=== PATIENT | male | born 1970 | race Caucasian/White ===

== ENCOUNTER 2020-01-18 07:07 | Outpatient (CLI) | payer BC, SELFPAY ==
[2020-01-18 07:50] LABS: Hematocrit 45.9 % (42.0-52.0); Hemoglobin 15.6 g/dL (14.0-18.0); Mean Corpuscular Hemoglobin 30.6 pg (26-34); Mean Platelet Volume 10.1 fl (7.4-10.4); Platelet Count Result 247 k/mm3 (150-375); Red Cell Distribution Width 13.4 % (11.5-14.5); White Blood Count 5.5 K/mm3 (4.5-10.0)
[2020-01-18 08:05] LABS: Alanine Aminotransferase 33 U/L (4-50); Albumin Level 4.5 g/dL (3.5-5.1); Alkaline Phosphatase 48 U/L (38-126); Anion Gap 7 mmol/L (8-16); Aspartate Amino Transferase 28 U/L (17-59); Bilirubin,Total 1.1 mg/dL (0.2-1.3); Blood Urea Nitrogen 21 mg/dL (9-20); Calcium 9.4 mg/dL (8.4-10.2); Carbon Dioxide 30 mmol/L (22-30); Chloride 102 mmol/L (98-107); Cholesterol 216 mg/dL (0-200); Estimated Glomerular Filt Rate > 60; Glucose 101 mg/dL (75-110); HDL Direct 67 mg/dL; Potassium 4.3 mmol/L (3.4-5.0); Sodium 139 mmol/L (137-145); Triglycerides 119 mg/dL (<150)
[2020-01-18 08:16] LABS: LDL Cholesterol Direct 108 mg/dL
[2020-01-18 08:34] LABS: Prostate Specific Antigen 0.4 ng/mL (< OR = 4.0)
== END 2020-01-18 07:08 | disposition home or self-care (01) ==
PROVIDERS: PCP Family Medicine; Visit Provider Physician Assistant Medical
DX: I10 Essential (primary) hypertension (principal); Z12.5 Encounter for screening for malignant neoplasm of prostate; Z13.220 Encounter for screening for lipoid disorders
CPT/HCPCS: 36415; 80053; 80061; 84153; 84443; 85027

== ENCOUNTER 2020-06-29 10:33 | Outpatient (CLI) | payer BC, SELFPAY ==
[2020-06-29 11:12] LABS: Basophils Percent Auto 0.6 % (0.2-1.2); Eosinophils Absolute Auto 0.1 K/mm3 (0-0.3); Eosinophils Percent Auto 2.5 % (0-4.4); Hematocrit 46.4 % (42.0-52.0); Hemoglobin 15.6 g/dL (14.0-18.0); Immature Granulocyte Absolute 0.01 K/mm3 (0.00-0.031); Immature Granulocyte Percent A 0.2 % (0-0.5); Lymphocytes Absolute Auto 1.58 K/mm3 (0.9-3.2); Lymphocytes Percent Auto 32.8 % (18.3-44.2); Mean Corpuscular HGB Conc 33.6 g/dl (32-36); Mean Corpuscular Hemoglobin 30.1 pg (26-34); Mean Corpuscular Volume 89.4 fl (80-100); Mean Platelet Volume 10.3 fl (7.4-10.4); Monocytes Absolute Auto 0.6 K/mm3 (0.1-0.6); Neutrophils Absolute Auto 2.5 K/mm3 (1.3-6.7); Neutrophils Percent Auto 51.9 % (45.5-73.1); Platelet Count Result 225 k/mm3 (150-375); Red Blood Count 5.19 M/mm3 (4.6-6.20); White Blood Count 4.8 K/mm3 (4.5-10.0)
--- NOTE | 2020-06-29 11:18 | ECG_ITS ---
Measurements Intervals [place] Rate: 51 P: 68 NE: 173 QRS: 63 QRSD: 110 T: 26 QT: 414 QTc: 384 Interpretive Statements SINUS BRADYCARDIA PEAKED T WAVES- CONSIDER HYPERKALEMIA OR ISCHEMIA ABNORMAL ECG Electronically Signed On 06-29-2020 11:35:14 EVS ATTENDANT by Denver Saini D.O.
[2020-06-29 11:23] LABS: Anion Gap 5 mmol/L (8-16); Blood Urea Nitrogen 20 mg/dL (9-20); Calcium 9.7 mg/dL (8.4-10.2); Carbon Dioxide 32 mmol/L (22-30); Chloride 102 mmol/L (98-107); Estimated Glomerular Filt Rate > 60; Glucose 97 mg/dL (75-110); Potassium 4.5 mmol/L (3.4-5.0); Sodium 139 mmol/L (137-145)
[2020-06-29 13:51] LABS: SARS-CoV-2 IgG Non-Reactive (NonReactive)
== END 2020-06-29 10:34 | disposition home or self-care (01) ==
PROVIDERS: PCP Family Medicine; Visit Provider Nurse Practitioner Family
DX: R00.2 Palpitations (principal); R07.89 Other chest pain; R25.2 Cramp and spasm
CPT/HCPCS: 36415; 80048; 82607; 83735; 84443; 85025; 86769; 93005

== ENCOUNTER 2020-07-03 13:00 | Outpatient (CLI) | payer BC, SELFPAY ==
--- NOTE | 2020-07-06 12:25 | WPDHOLTEREM ---
Holter/Event Monitor Holter/Event Monitor Date of procedure: 07/03/20 Procedure Type: 48 hour holter monitor Indications: Palpitations Conclusion: 1. 48 hour holter monitor on 07/03/20. 2. Predominant rhythm is sinus rhythm. HR range 39-150 bpm; average HR 67 bpm. 3. There are 51 premature supraventricular complexes and 3 supraventricular couplets. There are 2 short runs of atrial tachycardia, fastest at 124 bpm and longest lasting 8 beats. 4. There are 16 premature ventricular complexes and 1 ventricular couplet. No ventricular tachycardia. 5. No sinoatrial or atrioventricular blocks. No significant pauses greater than 2 seconds. 6. No symptoms available for correlation.
== END 2020-07-03 13:01 | disposition home or self-care (01) ==
PROVIDERS: PCP Family Medicine; Visit Provider Nurse Practitioner Family
DX: R00.2 Palpitations (principal)
CPT/HCPCS: 93225; 93226

== ENCOUNTER 2020-07-31 07:29 | Outpatient (CLI) | payer BC, SELFPAY ==
--- NOTE | 2020-07-31 07:45 | ECHO_ITS ---
Patient Info Name: Hayden Longo Age: 50 years : 1970 Gender: Male Ht: 67 in Wt: 190 lbs BSA: 2.04 m2 HR: 57 bpm BP: 141 / 83 mmHg Exam Date: 07/31/2020 7:54 AM Exam Location: [facility] Pulmonary Patient Status: Outpatient Admit Date: 07/31/2020 Staff Ordering Physician: Maida Nunez NP Lead Cytogenetic Technologist: Sade Colon RDCS Attending Provider: Maida Nunez NP Referring Physician: Mayra SILVA; Exam Type: CA echo doppler color flow Study Info Indications R94.31 - Abnormal electrocardiogram ECG EKG Complete two-dimensional, color flow and Doppler transthoracic echocardiogram is performed. Summary 1. Complete two-dimensional, color flow and Doppler transthoracic echocardiogram is performed. 2. Left ventricular chamber dimension is normal. 3. Left ventricular systolic function is normal, estimated at 60-65%. 4. The left ventricular diastolic function is normal. 5. E/e' 7 is not elevated. 6. There is mild mitral valve regurgitation. 7. There is trace tricuspid valve regurgitation. 8. Mild pulmonary hypertension, estimated pulmonary arterial systolic pressure is 41 mmHg. Left Ventricle E/e' 7 is not elevated. Left ventricular chamber dimension is normal. Left ventricular systolic function is normal, estimated at 60-65%. The left ventricular diastolic function is normal. Right Ventricle Right ventricular chamber dimension is normal. Right ventricular systolic function is normal. Left Atria Left atrial chamber dimension is normal. Right Atria Right atrial chamber dimension is normal. Aortic Valve The aortic valve is trileaflet. There is no aortic valve stenosis. There is no aortic valve regurgitation. Pulmonic Valve There is no pulmonic regurgitation. Mitral Valve There is no mitral valve stenosis. There is mild mitral valve regurgitation. Tricuspid Valve There is trace tricuspid valve regurgitation. Mild pulmonary hypertension, estimated pulmonary arterial systolic pressure is 41 mmHg. Pericardium/Pleural There is no pericardial effusion. Inferior Vena Cava Normal inferior vena cava with >50% collapse upon inspiration consistent with normal right atrial pressure, 5 mmHg. Aorta The aortic root size at the sinus of Valsalva is normal. Left Ventricular Outflow Tract Name Value Normal LVOT 2D LVOT Diameter 2.1 cm LVOT Doppler LVOT Peak Gradient 3 mmHg LVOT Mean Gradient 1 mmHg LVOT VTI 24 cm LVOT VTI/AV VTI Ratio 0.8 LVOT Stroke Volume 84 ml LVOT CO 9.4 l/min LVOT CI 4.6 l/min/m2 Pulmonic Valve Name Value Normal RVOT Doppler RVOT Peak Gradient 1 mmHg
--- NOTE | 2020-07-31 07:45 | EST_ITS ---
Patient Info Name: Hayden Longo Age: 50 years : 1970 Gender: Male Ht: 67 in Wt: 190 lbs BSA: 2.04 m2 Exam Date: 07/31/2020 9:37 AM Exam Location: [facility] Stress Patient Status: Outpatient Admit Date: 07/31/2020 Staff Ordering Physician: Maida Nunez NP Attending Provider: Maida Nunez NP Exercise Technologist: Gertrude Reynoso RDCS Exercise Physician: Denver Saini DO Exam Type: CA stress test treadmill Study Info Indications R94.31 - Abnormal electrocardiogram ECG EKG A regadenoson stress test was performed. Summary 1. 1. Negative [place]anco exercise stress test for ischemic ST changes by ECG criteria. 2. 2. Good functional capacity, achieving 12 METs of workload. 3. 3. Baseline hypertension. 4. 4. Appropriate HR response to exercise. 5. 5. Appropriate HR recovery at 1 minute post exercise. 6. 6. No imaging with stress testing. 7. 7. Patient informed of the above results. Protocol: [place] Stress ECG Details Stage: REST Duration (min): 0 min : 41 sec Speed (mph): 0.0 Grade (%): 0 HR (bpm): 55 SBP (mmHg): 146 DBP (mmHg): 90 METS: --- Stage: REST Duration (min): 4 min : 57 sec Speed (mph): 0.0 Grade (%): 0 HR (bpm): 61 SBP (mmHg): 146 DBP (mmHg): 90 METS: --- Stage: STAGE 1 Duration (min): 1 min : 0 sec Speed (mph): 1.7 Grade (%): 10 HR (bpm): 85 SBP (mmHg): 146 DBP (mmHg): 90 METS: --- Stage: STAGE 1 Duration (min): 2 min : 0 sec Speed (mph): 1.7 Grade (%): 10 HR (bpm): 90 SBP (mmHg): 146 DBP (mmHg): 90 METS: --- Stage: STAGE 1 Duration (min): 3 min : 0 sec Speed (mph): 1.7 Grade (%): 10 HR (bpm): 97 SBP (mmHg): 168 DBP (mmHg): 70 METS: --- Stage: STAGE 2 Duration (min): 1 min : 0 sec Speed (mph): 2.5 Grade (%): 12 HR (bpm): 110 SBP (mmHg): 168 DBP (mmHg): 70 METS: --- Stage: STAGE 2 Duration (min): 2 min : 0 sec Speed (mph): 2.5 Grade (%): 12 HR (bpm): 117 SBP (mmHg): 198 DBP (mmHg): 81 METS: --- Stage: STAGE 2 Duration (min): 3 min : 0 sec Speed (mph): 2.5 Grade (%): 12 HR (bpm): 117 SBP (mmHg): 198 DBP (mmHg): 81 METS: --- Stage: STAGE 3 Duration (min): 1 min : 0 sec Speed (mph): 3.4 Grade (%): 14 HR (bpm): 133 SBP (mmHg): 197 DBP (mmHg): 78 METS: --- Stage: STAGE 3 Duration (min): 2 min : 0 sec Speed (mph): 3.4 Grade (%): 14 HR (bpm): 138 SBP (mmHg): 197 DBP (mmHg): 78 METS: --- Stage: STAGE 3 Duration (min): 3 min : 0 sec Speed (mph): 3.4 Grade (%): 14 HR (bpm): 140 SBP (mmHg): 202 DBP (mmHg): 78 METS: --- Stage: STAGE 4 Duration (min): 1 min : 0 sec Speed (mph): 4.2 Grade (%): 16 HR (bpm): 157 SBP (mmHg): 202 DBP (mmHg): 78 METS: --- Stage: STAGE 4 [facility]
== END 2020-07-31 07:30 | disposition home or self-care (01) ==
LOC: ANHCARD 07:32
PROVIDERS: PCP Family Medicine; Visit Provider Nurse Practitioner Family
DX: R94.31 Abnormal electrocardiogram [ECG] [EKG] (principal); I10 Essential (primary) hypertension
CPT/HCPCS: 93017; 93306

== ENCOUNTER → 2021-01-11 08:38 | Outpatient (CLI) | payer BC, SELFPAY ==
--- NOTE | ~2021-01-11 | CT_ITS ---
EXAMINATION: CT abdomen pelvis w con DATE: 01/11/2021 09:00 INDICATION: Right lower quadrant abdominal pain. TECHNIQUE: Computed tomography (CT) of the abdomen and pelvis was performed with 100 mL Omnipaque-350 intravenous contrast. Automated exposure control and iterative reconstruction technique were employe d. The dose-length product was 622.40 mGy-cm. COMPARISON: 10/02/2007 FINDINGS: Lung bases are clear. Heart size is normal. No pericardial or pleural effusion. Liver, gallbladder, s pleen, pancreas, bilateral adrenal glands and left kidney are normal. 5 mm low-attenuation likely cys t at the lower pole of the right kidney which is too small to definitively characterize. Unchanged no rmal appendix. A few diverticula along the sigmoid colon without adjacent inflammatory change to sugg est diverticulitis. No bowel obstruction. Incompletely distended bladder is unremarkable. No free int raperitoneal gas or fluid. No pathologically enlarged abdominal or pelvic lymphadenopathy. No inguina l hernias. Unchanged L5 spondylolysis with bilateral pars intra-articular is defects and 3 mm anterol isthesis on S1. Mild bilateral hip osteoarthritis. IMPRESSION: 1. No acute intra-abdominal/pelvic process. 2. Chronic L5 spondylolysis. Reviewed, dictated and finalized at location B.
[2021-01-11 08:52] LABS: Estimated Glomerular Filt Rate > 60
== END ==
PROVIDERS: PCP Family Medicine; Visit Provider Nurse Practitioner Family
DX: R10.31 Right lower quadrant pain (principal); M47.896 Other spondylosis, lumbar region
CPT/HCPCS: 74177; Q9967

== ENCOUNTER 2022-04-26 06:49 | Outpatient (CLI) | payer BC, SELFPAY ==
[2022-04-26 07:40] LABS: Anion Gap 3 mmol/L (8-16); Basophils Percent Auto 0.6 % (0.2-1.2); Blood Urea Nitrogen 17 mg/dL (9-20); Calcium 9.6 mg/dL (8.4-10.2); Carbon Dioxide 35 mmol/L (22-30); Chloride 103 mmol/L (98-107); Cholesterol 205 mg/dL (0-200); Eosinophils Absolute Auto 0.2 K/mm3 (0-0.3); Eosinophils Percent Auto 3.2 % (0-4.4); Estimated Glomerular Filt Rate > 60; Glucose 97 mg/dL (65-110); HDL Direct 84 mg/dL; Hematocrit 48.5 % (42.0-52.0); Hemoglobin 16.3 g/dL (14.0-18.0); Immature Granulocyte Absolute 0.01 K/mm3 (0.00-0.031); Immature Granulocyte Percent A 0.2 % (0-0.5); Lymphocytes Absolute Auto 1.91 K/mm3 (0.9-3.2); Lymphocytes Percent Auto 40.8 % (18.3-44.2); Mean Corpuscular HGB Conc 33.6 g/dl (32-36); Mean Corpuscular Hemoglobin 30.9 pg (26-34); Mean Platelet Volume 10.2 fl (7.4-10.4); Monocytes Absolute Auto 0.5 K/mm3 (0.1-0.6); Monocytes Percent Auto 11.1 % (2.6-8.5); Neutrophils Absolute Auto 2.1 K/mm3 (1.3-6.7); Neutrophils Percent Auto 44.1 % (45.5-73.1); Platelet Count Result 264 k/mm3 (150-375); Potassium 4.6 mmol/L (3.4-5.0); Red Blood Count 5.27 M/mm3 (4.6-6.20); Red Cell Distribution Width 13.4 % (11.5-14.5); Sodium 141 mmol/L (137-145); Triglycerides 65 mg/dL (<150); White Blood Count 4.7 K/mm3 (4.5-10.0)
[2022-04-26 07:51] LABS: LDL Cholesterol Direct 81 mg/dL
[2022-04-26 08:11] LABS: Prostate Specific Antigen 0.5 ng/mL (< OR = 4.0)
== END 2022-04-26 06:50 | disposition home or self-care (01) ==
LOC: ANHLAB 06:51
PROVIDERS: PCP Family Medicine; Visit Provider Family Medicine
DX: I10 Essential (primary) hypertension (principal); Z13.220 Encounter for screening for lipoid disorders; N40.2 Nodular prostate without lower urinary tract symptoms; Z12.5 Encounter for screening for malignant neoplasm of prostate
CPT/HCPCS: 36415; 80048; 80061; 84153; 84443; 85025; G0103

== ENCOUNTER 2022-05-27 01:46 | Day surgery (SDC) | payer BC, SELFPAY ==
[2022-05-14 13:42] VITALS: BMI 27.2
--- NOTE | 2022-05-25 20:04 | P.HP_ITS ---
History of Present Illness History of Present Illness Consent: Risks, benefits, and alternatives have been discussed and questions answered. Patient agrees to proceed with procedure. Chief complaint: colon cancer screen Narrative: Hayden Longo is a 51 year old male referred for colon cancer screening. Review of Systems Review of Systems: All systems reviewed & are unremarkable except as noted in HPI and below PMFSH Past Medical History Medical History BMI 26.0-26.9,adult BMI 29.0-29.9,adult Prostate nodule Screen for colon cancer Family History Family History Father Hypertension Family history of transient ischemic attacks Mother Heart disease Sibling No problems noted. Social History Social History Smoking status: Never smoker Second hand tobacco smoke exposure: No Alcohol intake: current Drinks per week: 2 Alcohol use details: DRINKS Substance use: never Substance use type: does not use Living arrangements: with family Additional occupation/education comments: [employer] Gender identity (if verbalized by the patient): Male Spiritual care concerns: No Meds Home Medications and Allergies Home Medications Medication Instructions Recorded Confirmed Type benazepril 10 mg tablet 10 mg PO DAILY #30 tabs 04/22/22 05/14/22 Rx Allergies Allergy/AdvReac Type Severity Reaction Status Date / Time No Known Allergies Allergy Verified 05/14/22 13:42 Exam Const: General: alert Orientation/consciousness: patient oriented x3 Resp: Auscultation: clear to auscultation bilaterally Cardio: Rhythm: regular rhythm GI: GI Palp: Yes Soft to palpation and No Tenderness to palpation present (GI) Neuro: General: patient oriented x3 Assessment and Plan Assessment and plan (1) Screen for colon cancer: Code(s): Z12.11 - Encounter for screening for malignant neoplasm of colon Status: Acute Assessment and Plan: Colonoscopy with possible biopsy or polypectomy or cautery or injection of substances.
[2022-05-27 08:42] VITALS: BP 136/75; PULSE 48; RESP 18; TEMP 36.1; O2SAT 100; BMI 26.8
[2022-05-27] MEDS: LACTATED RINGERS 1,000 ML 150 ML IV CONT (08:53)
--- NOTE | 2022-05-27 09:34 | WPDANESEPPF ---
Anes - Initial Pre Proc Eval Procedure: Operation Date: 05/27/22 10:00 Proposed Procedures p Colonoscopy - Levi Cuevas MD Date/Time: 05/27/22 09:34 Surgeon: Levi Cuevas MD Pre Op Diagnosis: colon cancer screen Patient Data Age: 51 Gender: M Height: 1.7 m Weight: 77.6 kg Last Vital Signs Temp 97 F L 05/27/22 08:42 Pulse 48 L 05/27/22 08:42 Resp 18 05/27/22 08:42 BP 136/75 05/27/22 08:42 Pulse Ox 100 05/27/22 08:42 O2 Del Method Room Air 05/27/22 08:42 Allergies Allergy/AdvReac Type Severity Reaction Status Date / Time No Known Allergies Allergy Verified 05/14/22 13:42 Home Medications Medication Instructions Recorded Confirmed Type benazepril 10 mg tablet 10 mg PO DAILY #30 tabs 04/22/22 05/14/22 Rx Patient hx anesthesia problems: none Family hx anesthesia problems: none Results Review: All pre-operative results and documents have been reviewed as part of the pre-operative evaluation. [facility] Past Medical History Medical History BMI 26.0-26.9,adult BMI 29.0-29.9,adult Prostate nodule Screen for colon cancer Family History Family History Father Hypertension Family history of transient ischemic attacks Mother Heart disease Sibling No problems noted. Social History Social History Smoking status: Never smoker Second hand tobacco smoke exposure: No Alcohol intake: current Drinks per week: 2 Alcohol use details: DRINKS Substance use: never Substance use type: does not use Living arrangements: with family Additional occupation/education comments: [employer] Gender identity (if verbalized by the patient): Male Spiritual care concerns: No Anes - Eval Final PreProcedure Day of Procedure 05/27/22 09:34 Patient weight: normal Heart: regular rate and rhythm Lungs: clear to auscultation Airway: Mallampati scale class II Neurological: alert and oriented Last oral intake: >/= 8 hours ASA classification: II Emergent: no Anesthetic plan: proceed Anesthesia type and monitoring: general GIVS and standard monitoring Results Review: All pre-operative results and documents have been reviewed as part of the pre-operative evaluation. Informed Consent: The patient's anesthetic plan and its attendant risks and benefits were discussed with the patient/family/POA. Questions were solicited and answers provided to the satisfaction of the patient/family/POA.
[2022-05-27 10:10] VITALS: BP 95/69; PULSE 51; RESP 18; O2SAT 100
[2022-05-27 10:20] VITALS: BP 112/71; PULSE 48; RESP 14; O2SAT 100
[2022-05-27 10:30] VITALS: BP 120/75; PULSE 49; RESP 14; O2SAT 100
== END 2022-05-27 10:45 | disposition home or self-care (01) ==
PROVIDERS: PCP Family Medicine; Visit Provider Internal Medicine Gastroenterology
PROC: 0DJD8ZZ Inspection of Lower Intestinal Tract, Via Natural or Artificial Opening Endoscopic (ICD-10-PCS; CPT 45378; principal; 2022-05-27 10:00)
DX: Z12.11 Encounter for screening for malignant neoplasm of colon (principal)
CPT/HCPCS: 45378; J2704; J7120

== ENCOUNTER 2023-02-25 10:39 | Emergency (ER) | payer BC, SELFPAY ==
--- NOTE | ~2023-02-25 | XR_ITS ---
XR clavicle RT, XR shoulder RT min 2V 02/25/2023 11:07 Indication: Right shoulder pain after fall Procedure: 2 views right clavicle and 4 views right shoulder Comparison: 02/25/2023 Findings: There is mild osteoarthritis of the right acromioclavicular and glenohumeral joints. No sig nificant soft tissue abnormality. No foreign bodies. Impression: 1: No acute fracture. Reviewed, dictated and finalized at location L. Impression: 1: No acute fracture. Impression: 1: No acute fracture.
[2023-02-25 10:50] VITALS: BP 155/89; PULSE 58; RESP 15; TEMP 36.7; O2SAT 99
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
== END 2023-02-25 12:04 | disposition home or self-care (01) ==
PROVIDERS: Emergency Provider Physician Assistant; PCP Family Medicine
DX: S49.91XA Unspecified injury of right shoulder and upper arm, initial encounter (principal); V18.0XXA Pedal cycle driver injured in noncollision transport accident in nontraffic accident, initial encounter; Y93.55 Activity, bike riding
CPT/HCPCS: 73000; 73030; 99283; A4565

== ENCOUNTER 2023-06-20 07:05 | Outpatient (CLI) | payer BC, SELFPAY ==
[2023-06-20 07:21] LABS: Hematocrit 44.9 % (42.0-52.0); Hemoglobin 15.4 g/dL (14.0-18.0); Mean Corpuscular HGB Conc 34.3 g/dl (32-36); Mean Corpuscular Hemoglobin 31.5 pg (26-34); Mean Corpuscular Volume 91.8 fl (80-100); Mean Platelet Volume 10.2 fl (7.4-10.4); Platelet Count Result 246 k/mm3 (150-375); Red Blood Count 4.89 M/mm3 (4.6-6.20); Red Cell Distribution Width 13.1 % (11.5-14.5); White Blood Count 3.8 K/mm3 (4.5-10.0)
[2023-06-20 08:00] LABS: Free T4 Free Thyroxine 1.12 ng/mL (0.78-2.19)
[2023-06-20 08:43] LABS: Anion Gap 6 mmol/L (8-16); Blood Urea Nitrogen 19 mg/dL (9-20); Calcium 9.5 mg/dL (8.4-10.2); Carbon Dioxide 30 mmol/L (22-30); Chloride 104 mmol/L (98-107); Cholesterol 179 mg/dL (0-200); Estimated Glomerular Filt Rate > 60; Glucose 87 mg/dL (65-110); HDL Direct 57 mg/dL; Sodium 140 mmol/L (137-145); Triglycerides 51 mg/dL (<150)
[2023-06-20 08:47] LABS: Potassium 4.6 mmol/L (3.4-5.0)
[2023-06-20 08:49] LABS: LDL Cholesterol Direct 91 mg/dL
[2023-06-20 09:27] LABS: Prostate Specific Antigen 0.5 ng/mL (< OR = 4.0)
== END 2023-06-20 07:06 | disposition home or self-care (01) ==
LOC: ANHLAB 07:06
PROVIDERS: PCP Family Medicine; Visit Provider Nurse Practitioner Adult Health
DX: E78.5 Hyperlipidemia, unspecified (principal); I10 Essential (primary) hypertension; Z12.5 Encounter for screening for malignant neoplasm of prostate; Z13.29 Encounter for screening for other suspected endocrine disorder
CPT/HCPCS: 36415; 80048; 80061; 84153; 84439; 84443; 85027; G0103

== ENCOUNTER 2023-07-17 14:01 | Outpatient (CLI) | payer BC, SELFPAY ==
[2023-07-17 14:17] LABS: Basophils Percent Auto 0.4 % (0.2-1.2); Eosinophils Absolute Auto 0.1 K/mm3 (0-0.3); Eosinophils Percent Auto 2.8 % (0-4.4); Hematocrit 45.5 % (42.0-52.0); Hemoglobin 15.3 g/dL (14.0-18.0); Immature Granulocyte Absolute 0.01 K/mm3 (0.00-0.031); Immature Granulocyte Percent A 0.2 % (0-0.5); Lymphocytes Absolute Auto 1.84 K/mm3 (0.9-3.2); Mean Corpuscular HGB Conc 33.6 g/dl (32-36); Mean Corpuscular Hemoglobin 31.2 pg (26-34); Mean Corpuscular Volume 92.9 fl (80-100); Mean Platelet Volume 10.2 fl (7.4-10.4); Monocytes Absolute Auto 0.5 K/mm3 (0.1-0.6); Monocytes Percent Auto 10.4 % (2.6-8.5); Neutrophils Absolute Auto 2.2 K/mm3 (1.3-6.7); Neutrophils Percent Auto 47.2 % (45.5-73.1); Platelet Count Result 226 k/mm3 (150-375); Red Cell Distribution Width 13.4 % (11.5-14.5); White Blood Count 4.7 K/mm3 (4.5-10.0)
== END 2023-07-17 14:02 | disposition home or self-care (01) ==
LOC: ANHLAB 14:03
PROVIDERS: PCP Family Medicine; Visit Provider Physician Assistant Medical
DX: D72.9 Disorder of white blood cells, unspecified (principal)
CPT/HCPCS: 36415; 85025

== ENCOUNTER 2024-07-12 12:46 | Outpatient (CLI) | payer BC, SELFPAY ==
--- NOTE | ~2024-07-12 | MR_ITS ---
EXAMINATION: MR knee RT wo con DATE: 07/12/2024 13:38 INDICATION: Right knee pain TECHNIQUE: Magnetic resonance imaging (MRI) of the right knee was performed without intravenous contr ast. Sequences included coronal PD-weighted FSE, coronal PD-weighted FS FSE, sagittal T2-weighted FS E, sagittal PD-weighted FS FSE and axial PD weighted fat saturated FSE. COMPARISON: None. FINDINGS: Medial compartment: Complex tear at the posterior body and posterior horn of the medial meniscus which includes both hori zontal and radial components. Articular cartilage is normal. Lateral compartment: Lateral meniscus is normal. Articular cartilage is normal. Patellofemoral compartment: Horizontal band of chondral fissuring at the central aspect of the medial patellar facet extending ac ross the apical ridge to the medial side of the lateral facet. Partial-thickness chondral ulceration with mild underlying cortical irregularity associated mild edema-like marrow signal change at the inf erior aspect of the medial trochlea. Ligaments and tendons: Anterior and posterior cruciate ligaments are normal. The medial collateral ligament and fibular wilber ateral ligament complex are normal. Mild distal quadriceps tendinopathy with moderate-sized enthesoph yte at its patellar insertion. Additional mild tendinopathy and smaller enthesophytes at the patellar and anterior tibial insertions of the patellar tendon. The visualized medial and lateral hamstring t endons as well as the iliotibial band are normal. Fluid: Physiologic amount of fluid in the joint space. No loose osteochondral bodies identified. Small Miller 's cyst. Osseous/other: Bone alignment is normal. No fracture or pathologic marrow replacing process. IMPRESSION: 1. Complex tear at the body and posterior horn of the medial meniscus. 2. Mild patellofemoral osteoarthritis with moderate grade patellar and small region of high-grade tro chlear chondromalacia. 3. 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 4. Small Miller's cyst. Reviewed, dictated and finalized at location B. CUSTODIAN IMPRESSION: 1. Complex tear at the body and posterior horn of the medial meniscus. 2. Mild patellofemoral osteoarthritis with moderate grade patellar and small re gion of high-grade trochlear chondromalacia. 3. 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 4. Small Miller's cyst.
== END 2024-07-12 12:47 | disposition home or self-care (01) ==
LOC: GOSHIMG 12:47
PROVIDERS: PCP Orthopaedic Surgery; Visit Provider Orthopaedic Surgery
DX: M17.11 Unilateral primary osteoarthritis, right knee (principal); S83.231A Complex tear of medial meniscus, current injury, right knee, initial encounter; X58.XXXA Exposure to other specified factors, initial encounter; M71.21 Synovial cyst of popliteal space [Baker], right knee
CPT/HCPCS: 73721

== ENCOUNTER 2024-07-21 12:54 | Outpatient (CLI) | payer BC, SELFPAY ==
--- NOTE | 2024-07-21 13:00 | ECG_ITS ---
Test Date: 2024-07-21 13:16:16 Measurements Intervals [place] Rate: 48 P: 38 AR: 175 QRS: 48 QRSD: 111 T: 32 QT: 430 QTc: 387 Interpretive Statements SINUS BRADYCARDIA No previous ECG available for comparison Electronically Signed On 07-21-2024 15:50:16 FLOUR BLENDER by Compa Douglas M.D.
--- OUTSIDE RECORDS SUMMARY | 2024-07-21 14:18 | XMS_ITS | Continuity of Care Document ---
Author Organization [facility] Address [address] [place] [address] [address] [place] [address] Phone Care Team Providers Care Sap Treasury Consultant Name Role Phone Duong OD, Luis Fernando Unavailable Unavailable Procedures Procedure Date Office/outpatient Visit, Est Remove Foreign Body From Eye Advance Directives Directive Yes / No Effective Date File Name No Information Encounters Encounter Description Practice Location Reason(s) For Visit Diagnoses Date Provider Providers Copied on Encounter Office/outpat ient Visit, Est [facility], [address] [place] [address] [address], [place], [place], [id number], tel:[phone] [facility] No Information 2-200 7 Duong OD Luis Fernando. [address] , [address], [place], [place], [facility], . tel:[phone] [facility], [address] [place] [address] [address], [place], [place], [id number], tel:[phone] [facility] No Information 0 5-200 7 Duong OD Luis Fernando. [address] , [address], [place], [address], [place]. tel:[phone] Family History Family Member Type Diagnosis Age At Onset No Information Payers Payer name Insurance type Covered libertarian ID Authoriza tion(s) [place] BL [id number] Social History Type Description Quantity Date Captured Comments Sex Male Smoking Status No Information Chief Complaint And Reason For Visit No Information Reason For Referral Reason For Referral No Information History Of Present Illness Encounter Date Complaint History Of Prese nt Illness No Information Functional Status Date Functional Assessmen t No Information Instructions Date Instruction Additional Infor mation No Information Assessments Type Assessment Date No Information Patient Care Teams Name Effective Dates (start - stop) Status Members No Information
== END 2024-07-21 12:55 | disposition home or self-care (01) ==
LOC: ANHSURGERY 12:59
PROVIDERS: PCP Family Medicine; Visit Provider Orthopaedic Surgery
DX: I10 Essential (primary) hypertension (principal); Z01.818 Encounter for other preprocedural examination
CPT/HCPCS: 93005

== ENCOUNTER 2024-07-26 01:38 | Day surgery (SDC) | payer BC, SELFPAY ==
--- NOTE | 2024-07-15 14:45 | SUR.PREOP ---
Report to the Outpatient Waiting Room, entrance under the green pavilion located off [facility], at time ___06____ on date ___07/26/24____. Planned Procedure Time: ____729____.? Time changes happen often and if your time is changed the preop area will call you the afternoon before. - You and your visitor will be asked to self-screen and do not enter if you have any COVID symptoms. Please call surgeon if you need to reschedule. - A mask is optional within the hospital at this time. Patients may have clear liquids (water, carbonated beverages, clear teas, apple juice) until 3 hours prior to surgery with a maximum of 20 ounces. - NO CLEAR LIQUIDS AFTER 0430 - No food from midnight until time of surgery and no smoking, or chewing tobacco (or any form of nicotine). No chewing gum, candy or mints. - Infants may have breast milk until 4 hours before surgery, infant formula 6 hours prior to surgery. - Children will be allowed to drink immediately following surgery.? If applicable, please bring a bottle or sippy cup to assist with drinking. Juice, water, soda, and popsicles are readily available.? For infants on formula, please bring formula the day of surgery.? Pacifiers are allowed. Take only the following medications with a SIP of water on the morning of surgery: N/A DO NOT STOP ANY OF YOUR OTHER PRESCRIPTION MEDICATIONS PRIOR TO SURGERY EXCEPT THE FOLLOWING Hold all vitamins and supplements for 3 days per anesthesiologist. Medications to discontinue per physician N/A Date to take last dose Please no make-up, nail cape verdean, hairspray, perfume, deodorant, or body powder the day of surgery.? No jewelry (including any body piercings) or valuables the day of surgery, leave them at home.? Please take a shower or bath the night before, or the morning of, surgery with an antibacterial soap.? Wear comfortable, loose fitting clothing.? Children are encouraged to wear pajamas. - Jewelry must be removed prior to entering the operating room.? Rings and piercings that are not removed may be cut off. - The hospital will not accept responsibility for valuables.? - Please leave all valuables, including medications, at home the day of surgery. If you are going home after surgery, a licensed tanker driver must drive you home.? - NO public transportation without another adult if you receive anesthesia. - We recommend that an adult stay with you for 24 hours following discharge. - We also recommend that you do not drive, make important decision, drink alcoholic beverages, or take any drugs that were not prescribed by your health care provider for at least 24 hours after your discharge time. For Pediatric surgeries, we recommend two adults accompany the child home. Follow any additional instructions given to you from your surgeon. Telephone instructions given to MAGGI JORDAN and asked if any additional questions and then verbalized understanding. Patient advised to call surgeon office or pre surgery nurse liaison [phone] if any additional questions.
[2024-07-15 15:00] VITALS: BMI 26.6
--- NOTE | 2024-07-22 12:43 | PM.IMHP ---
H&P: HPI History of Present Illness Date/Time: 07/22/24 12:43 Chief Complaint: Patient has catching and locking of his meniscus right knee. He has failed conservative treatment like to consider arthroscopic intervention at this time. Review of Systems Musculoskeletal: Musculoskeletal: Reports arthralgias, Reports joint swelling and Reports stiffness Neurologic: Reports abnormal gait [facility], [facility] Past Medical History Medical History Sinusitis Hyperlipidemia Screening for thyroid disorder Screen for colon cancer Prostate nodule Exposure to COVID-19 virus Chest discomfort Screening for prostate cancer Family History Family History Father Hypertension Family history of transient ischemic attacks Mother Heart disease Sibling No problems noted. 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 Neurologically he is grossly intact. He has mechanical catching and locking is been unresponsive to conservative treatment. Eyes: General: appearance normal, both eyes and all related structures Neck: Neck: supple Resp: Effort & Inspection: normal respiratory effort Cardio: Rate: regular rate Rhythm: regular rhythm Radiology Reports: Comments: Magnetic Resonance Report Signed Patient: Hayden Longo EXAMINATION: MR knee RT wo con DATE: 07/12/2024 13:38 INDICATION: Right knee pain TECHNIQUE: Magnetic resonance imaging (MRI) of the right knee was performed without intravenous contrast. Sequences included coronal PD-weighted FSE, coronal PD-weighted FS FSE, sagittal T2-weighted FSE, sagittal PD-weighted FS FSE and axial PD weighted fat saturated FSE. COMPARISON: None. FINDINGS: Medial compartment: Complex tear at the posterior body and posterior horn of the medial meniscus which includes both horizontal and radial components. Articular cartilage is normal. Lateral compartment: Lateral meniscus is normal. Articular cartilage is normal. Patellofemoral compartment: Horizontal band of chondral fissuring at the central aspect of the medial patellar facet extending across the apical ridge to the medial side of the lateral facet. Partial-thickness chondral ulceration with mild underlying cortical irregularity associated mild edema-like marrow signal change at the inferior aspect of the medial trochlea. Ligaments and tendons: Anterior and posterior cruciate ligaments are normal. The medial collateral ligament and fibular collateral ligament complex are normal. Mild distal quadriceps tendinopathy with moderate-sized enthesophyte at its patellar insertion. Additional mild tendinopathy and smaller enthesophytes at the patellar and anterior tibial insertions of the patellar tendon. The visualized medial and lateral hamstring tendons as well as the iliotibial band are normal. Fluid: Physiologic amount of fluid in the joint space. No loose osteochondral bodies identified. Small Miller's cyst. Osseous/other: Bone alignment is normal. No fracture or pathologic marrow replacing process. IMPRESSION: 1. Complex tear at the body and posterior horn of the medial meniscus. 2. 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 3. 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 4. Small Miller's cyst. Reviewed, dictated and finalized at location B. NURSE Please be advised this is a medical docume Clavicle X-Ray 02/25/23 Knee X-Ray 06/10/24 Knee MRI 07/12/24 Shoulder X-Ray 02/25/23 Orthopedics Result Report 06/10/24 Assessment and Plan Assessment and plan (1) Acute medial meniscus tear of right knee: Code(s): S83.241A - Other tear of medial meniscus, current injury, right knee, initial encounter Status: Acute Assessment and Plan: Patient has a medial meniscal tear right knee. He has catching locking and pain unresponsive to conservative treatment. He has failed would like to consider arthroscopic intervention. I discussed this with him risks, benefits, limitations, and alternatives in detail. Will proceed with arthroscopy partial meniscectomy proceed as indicated right knee.
[2024-07-26] VITALS (7 sets, daily range): BP systolic 109–146; BP diastolic 69–86; PULSE 47–61; RESP 12–16; TEMP 36.4–36.7; O2SAT 99–100
--- OUTSIDE RECORDS SUMMARY | 2024-07-26 01:40 | XMS_ITS | Continuity of Care Document ---
Author Organization [facility] Address [address] [place] [address] [address] [place] [address] Phone Care Team Providers Care Freight Service Inspector Name Role Phone Duong OD, Luis Fernando Unavailable Unavailable Procedures Procedure Date Office/outpatient Visit, Est Remove Foreign Body From Eye Advance Directives Directive Yes / No Effective Date File Name No Information Encounters Encounter Description Practice Location Reason(s) For Visit Diagnoses Date Provider Providers Copied on Encounter Office/outpat ient Visit, Est [facility], [address] [place] [address] [address], [place], [place], [id number], tel:[phone] [facility] No Information 2-200 7 Duong OD Luis Fernando. [address] , [address], [place], [place], [facility], . tel:[phone] [facility], [address] [place] [address] [address], [place], [place], [id number], tel:[phone] [facility] No Information 0 5-200 7 Duong OD Luis Fernando. [address] , [address], [place], [address], [place]. tel:[phone] Family History Family Member Type Diagnosis Age At Onset No Information Payers Payer name Insurance type Covered republican ID Authoriza tion(s) [place] F[place] BL [id number] Social History Type Description Quantity Date Captured [...]
[2024-07-26] MEDS: LACTATED RINGERS 1,000 ML 30 ML IV CONT ×2 (06:45→08:23)
--- NOTE | 2024-07-26 06:54 | WPDHPUPDATE1 ---
History and Physical Update Update Date/Time: 07/26/24 06:54 History and Physical has been reviewed, including an updated exam of the patient. There are NO changes in the patient's condition. Risks, benefits, and alternatives have been discussed and questions answered. Patient agrees to proceed with procedure.
--- NOTE | 2024-07-26 07:00 | P.PNAN_ITS ---
Anes - Initial Pre Proc Eval Procedure: Operation Date: 07/26/24 07:30 Proposed Procedures p Right Knee Arthroscopy, Partial Meniscectomy, Proceed As Indicated - Chase Mejia MD Date/Time: 07/26/24 07:00 Surgeon: Chase Mejia MD Pre Op Diagnosis: right knee medial meniscal tear Patient Data Age: 54 Gender: M Height: 1.7 m Weight: 77.2 kg Allergies Allergy/AdvReac Type Severity Reaction Status Date / Time No Known Allergies Allergy Verified 07/26/24 07:00 Home Medications ?Medication ?Instructions ?Recorded ?Confirmed ?Type benazepril 10 mg tablet 15 mg (1.5 x 10 mg) PO DAILY #45 05/31/24 07/26/24 Rx tabs Patient hx anesthesia problems: none Family hx anesthesia problems: none Results Review: All pre-operative results and documents have been reviewed as part of the pre- operative evaluation. [facility] Past Medical History Medical History Sinusitis Hyperlipidemia Screening for thyroid disorder Screen for colon cancer Prostate nodule Exposure to COVID-19 virus Chest discomfort Screening for prostate cancer Family History Family History Father Hypertension Family history of transient ischemic attacks Mother Heart disease Sibling No problems noted. 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 HTN. Pt very active w biking, running, no cp, only mild SOB w heavy exertion biking and running, expected given high functioning physical status. Informed Consent: The patient's anesthetic plan and its attendant risks and benefits were discussed with the patient/family/POA. Questions were solicited and answers provided to the satisfaction of the patient/family/POA.
[2024-07-26] MEDS: ACETAMINOPHEN 500 MG TABLET 1000 MG PO (07:08)
[2024-07-26] MEDS: KETOROLAC 15 MG/ML VIAL (*BKC) IV PUSH (07:08)
[2024-07-26] MEDS: ceFAZolin 2 GM/D5W 50 ML 2 GM/50 ML BAG IVPB (07:38)
[2024-07-26] MEDS: LIDO 1%/EPINEPHRINE 1:100,000 50 ML VIAL 30 ML INFILTRATE (07:51)
--- NOTE | 2024-07-26 08:16 | W.PM.PROC2 ---
Procedure Note - Detailed Date of Procedure 07/26/24 Pre-op Diagnosis RIGHT knee medial meniscal tear Post-op Diagnosis Same Procedure Performed RIGHT knee arthroscopy with partial meniscectomy Surgeon Chase Mejia MD Anesthesia General Indications Pain, Locking and Catching Description of Procedure Patient brought to operating room # . An anesthetic was administered. The knee was sterilely prepped and draped in the usual manner. Standard portals were used. Superior medial portal was used for the outflow cannula, inferior lateral portal was used for the scope, inferior medial portal was used for the instruments. Arthroscopy was performed, the patellar femoral joint degenerative changes. The medial compartment showed a complex tear, posteriorly. The lateral compartment showed tearing of the midbody. The ACL was intact. Using baskets and kiki the meniscal tears were trimmed back to a stable base so the nothing further could be pulled into the joint. Any loose or delaminated fragments were gently trimmed to a stable base. At this point the instruments were withdrawn, sutures placed and patient left the operating room in satisfactory condition. Estimated Blood Loss 20 Drains No Packing No Pathology None sent Complications No immediate complications Condition Stable Disposition PACU [facility] Billing Surgery - Charge Forward: Surgery Billing ([id number] Med and Lat Meniscectomy)
== END 2024-07-26 09:55 | disposition home or self-care (01) ==
PROVIDERS: PCP Family Medicine; Visit Provider Orthopaedic Surgery
PROC: (CPT 29870; principal; 2024-07-26 07:30)
DX: M23.331 Other meniscus derangements, other medial meniscus, right knee (principal)
CPT/HCPCS: 29881; A9270; J0690; J1885; J2003; J2004; J2250; J2405; J2704; J3010; J7120